=== PATIENT | female | born 1980 | race Two or more races ===

== ENCOUNTER 2025-01-06 11:40 | Day surgery (SDC) | payer MEDICAID, SELFPAY ==
--- NOTE | 2025-01-05 07:37 | EKG_ITS ---
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
--- NOTE | 2025-01-05 14:21 | ESHP_ITS ---
RE: ISAURO GUILLAUEM : 1980 DATE OF ADMISSION: 01/06/2025 HISTORY OF PRESENT ILLNESS: The patient came here with history of pain in the right shoulder joint. Pain is quite bad. The patient graded intensity of pain to be 8-9/10. Unable to see . The patient wants something to be done about it. 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 PAST MEDICAL HISTORY: No history of diabetes mellitus, high blood pressure, asthma, seizure, chest pain, myocardial infarction, or bleeding disorder. PAST SURGICAL HISTORY: . MEDICATIONS: She is on iron tablet, Tylenol, and cholecalciferol. ALLERGIES: NIL KNOWN. FAMILY HISTORY AND SOCIAL HISTORY: The patient denies smoking, drinking, and is working, but will be on disability. PHYSICAL EXAMINATION: GENERAL: Normal built lady. VITAL SIGNS: Pulse 88 per minute. Blood pressure 130/76. NECK: Soft, supple. No masses felt. Trachea is centrally placed. CARDIOVASCULAR SYSTEM: First and second heart sound normal. No murmur heard. LUNGS: Bilateral vesicular breath sounds. CHEST: Clear. ABDOMEN: Soft, no masses felt, bowel sounds present. EXTREMITIES: Right shoulder examination revealed 2+ tenderness at AC joint abduction is 0 to 90 degrees of forward flexion. No further range of motion is possible. Mary test and impingement test is positive. Painful arc test is positive as well. 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 ASSESSMENT AND PLAN: Since the patient is symptomatic and conservative treatment did not help her, therefore, a right rotator cuff repair with Soha procedure was discussed and advised. There is a little abnormality with the anterior inferior labral, but that is not the cause of pain in my opinion and the patient was explained about that. Detailed discussion took place. Risks with anesthesia were explained and that includes, but not limited to reaction to anesthetic agents, cardiac arrest, and rarely it might be fatal. Risks with operations include infection and if that happens, the patient may need further surgical procedure. Other risks include delayed healing, wound dehiscence, etc. No guarantee is given regarding the outcome of the procedure and/or relief of symptoms. Detailed discussion took place. The patient wants to proceed with surgery. Accordingly, surgery is booked for 01/06/2025, . DT: 13:49:02 TT: 14:20:00 Ref: [id number] - TID: [id number]
[2025-01-05 14:25] VITALS: BMI 24.9
[2025-01-05 16:32] LABS: Basophils # (Auto) 0.1 Thou/mm3 (0.0-0.2); Basophils % (Auto) 1 % (0-2.5); Eosinophils # (Auto) 0.5 Thou/mm3 (0.0-0.5); Eosinophils % (Auto) 7 % (0-10); Hematocrit 34.7 % (36.0-46.0); Hemoglobin 11.5 g/dL (12.0-16.0); Immature Granulocytes % (Auto) 0 % (0-0); Immature Granulocytes Auto 0.01 Thou/mm3 (0.00-0.00); Lymphocytes # (Auto) 2.6 Thou/mm3 (1.0-4.8); Lymphocytes % (Auto) 34 % (10-50); Mean Corpuscular HGB Conc 33.1 g/dl (31.0-37.0); Mean Corpuscular Hemoglobin 30.5 pg (25.0-35.0); Mean Corpuscular Volume 92 fL (80-100); Monocytes # (Auto) 0.7 Thou/mm3 (0.0-0.8); Monocytes % (Auto) 9 % (0-12); Neutrophils # (Auto) 3.8 Thou/mm3 (1.8-7.7); Neutrophils % (Auto) 50 % (37-80); Nucleated Red Blood Cell % 0 /100 WBC (0); Platelet Count 216 Thou/mm3 (140-440); Red Blood Count 3.77 Miln/mm3 (4.00-5.20); White Blood Count 7.6 Thou/mm3 (3.6-11.0)
[2025-01-05 16:39] LABS: INR 0.9 (0.9-1.3); Partial Thromboplastin Time 25.9 Seconds (22.0-36.0); Prothrombin Time 10.4 Seconds (9.0-12.2)
[2025-01-05 16:47] LABS: Anion Gap 10 (7-16); BUN/Creatinine Ratio 18 Ratio (12-20); Beta HCG,Quantitative < 1 mIU/mL (<5.0); Blood Urea Nitrogen 18 mg/dL (9-23); Calcium 8.4 mg/dL (8.3-10.6); Chloride 106 mMol/L (98-107); Estimated Creatinine Clearance 65.6 mL/min (>60); Glucose 99 mg/dL (74-106); Osmolality,Calculated 288 (275-295); Potassium 3.8 mMol/L (3.4-5.1); Sodium 144 mMol/L (136-145); eGFR > 60 See Note
[2025-01-06] VITALS (7 sets, daily range): BP systolic 93–117; BP diastolic 49–80; PULSE 56–102; RESP 17–20; TEMP 36.2–36.8; O2SAT 98–99; BMI 27.3
[2025-01-06] MEDS: RINGERS LACTATED 1000 ML 1,000 ML 20 ML IV (12:26)
--- NOTE | 2025-01-06 17:28 | PD.SUROPNT ---
Date of Procedure 01/06/25 Pre Op Diagnosis 1. Right rotator cuff tear with tendinosis 2. Right shoulder impingement syndrome Post Op Diagnosis Same Procedure 1. Excision lateral end of the clavicle 2. Excision coracoacromial ligament 3. Acromioplasty 4. 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 The rotator cuff showed oval tear but most of the fibers were intact. There were osteophytes on the anterior as well as lateral aspect of the acromial process which was impinging on the rotator cuff. Procedure Description The patient was given general endotracheal anesthesia. Right shoulder block was also given. Once satisfactory anesthesia was achieved patient was put in about 45?? sitting position with sandbag underneath the right shoulder blade. The part was thoroughly prepped and draped. A skin incision was made at the AC joint extending proximally towards the neck for a half inches and distally towards the arm for about couple of inches. Deeper dissection was carried out. Bleeding vessels were electrocoagulated as and when encountered. The soft tissue was reflected. Following that AC joint was exposed and AC joint was exposed. The deltoid muscle was reflected from the anterior and lateral aspect of the acromial process. There was 2 mm anterior osteophytes and 1 to 2 mm lateral osteophytes coming out from acromial process. Following that a periosteal elevator was placed underneath the lateral end of the clavicle and lateral 3-4 mm was excised. The coracoacromial ligament was removed. Following that anterior 2 mm and lateral 2 mm of acromion process along with the osteophytes were removed. With the help of curved osteotome the undersurface of the Acromial processes was chiseled out. That made more room between the superior surface of the head of the humerus and undersurface of the acromial process. Following that the rotator cuff was inspected. It revealed and oval tear, however most of the fibers were attached to the greater tuberosity. Wound was irrigated with antibiotic solution every 4-5 minutes. The left shoulder was manipulated at this time. The rotator cuff tear was repaired with 2-0 Vicryl. 2 drill holes were made on the acromial process and deltoid muscle was stitched back to it. Some reinforcement sutures were placed. The subcutaneous tissue was then closed with the help of 2-0 Vicryl and 3-0 Vicryl in layers. The skin was closed with nikita. After cleaning the wound with hydrogen proximal solution and sterile dressing was applied. Patient was taken to the recovery room in good condition. Estimated blood loss 15 mL. Prognosis in this case is good. Anesthesia GETA and other Pathology / specimen None Estimated Blood Loss 15 Surgeon Nghia Ramirez MD Surgical Staff Operation Date: 01/06/25 14:00 Case Staff Anesthesiologist: Augustus Reich RNcustomer supply coordinator: Deana Garcia
--- NOTE | 2025-01-06 17:30 | SUR.PHASEI ---
Pt. arrived to recovery via gurney, eyes open, responds to verbal commands, no c/o pain or nausea at this time, VSS, lung sounds clear, equal expansion nicky., dressing to right shoulder, sutures, adaptic soaked in betadine, fluffs, abd. pad, and metaport tape intact, no active bleeding, redness or swelling noted. Report received from Dr. Reich and Srini DOE.
--- NOTE | 2025-01-06 18:35 | SUR.PHASEII ---
Pt. meets criteria for discharge, VSS, no c/o pain or nausea at this time, AAOx3, dressing to right shoulder CDI, sling in place, discharge instructions provided to pt. and pt.'s daughter with use of pearl maker services, verbalized understanding. IV discontinued without complications, pt. escorted to vehicle with all of belongings by staff.
--- NOTE | 2025-01-11 13:34 | PD.ANESPROG ---
Documentation for date of: 01/11/25 POST ANESTHESIA NOTE: Patient had general LMA anesthesia and R interscalene nerve block for R rotator cuff surgery on 01/06/25. I just called her number for follow up but no answer. Augustus Reich MD Anesthesia Progress Note Progress Note Most recent Vital Signs: Last Vital Signs Temp 97.3 F 01/06/25 18:20 Pulse 87 01/06/25 18:20 Resp 20 01/06/25 18:20 BP 117/57 L 01/06/25 18:20 Pulse Ox 98 01/06/25 18:20
== END 2025-01-06 18:35 | disposition home or self-care (01) ==
PROVIDERS: Referring Provider Orthopaedic Surgery; Visit Provider Orthopaedic Surgery
PROC: (CPT 23412; principal; 2025-01-06 13:45)
DX: M75.21 Bicipital tendinitis, right shoulder (principal); M75.31 Calcific tendinitis of right shoulder; M75.101 Unspecified rotator cuff tear or rupture of right shoulder, not specified as traumatic; M75.41 Impingement syndrome of right shoulder; Z01.810 Encounter for preprocedural cardiovascular examination
CPT/HCPCS: 23412; 36415; 80048; 84702; 84703; 85025; 85610; 85730; 93005; A4217; A4649; J1100; J1580; J2250; J2704; J2765; J2795; J3010; J3490; J7030; J7120